=== PATIENT | female | born 1990 | race Caucasian/White ===

== ENCOUNTER → 2023-12-09 10:43 | Outpatient (REF) | payer OTHER, SELFPAY ==
[2023-12-10 14:36] LABS: Mumps Virus IgG Positive; Rubeola (Measles) IgG Positive; Varicella Zoster IgG (VZV) Positive
[2023-12-10 19:13] LABS: Rubella Positive
[2023-12-11 10:32] LABS: Quantiferon Mitogen minus NIL 9.98 IU/mL; Quantiferon NIL 0.02 IU/mL; Quantiferon Plus TB1 minus NIL 0.01 IU/mL (<=0.34); Quantiferon Plus TB2 minus NIL 0.02 IU/mL (<=0.34); Quantiferon TB Gold Plus Negative (Negative)
== END ==
LOC: OHS 10:43
PROVIDERS: ATTENDING PHYSICIAN Nurse Practitioner Family
DX: Z23 Encounter for immunization (principal)
CPT/HCPCS: 36415; 86480; 86735; 86762; 86765; 86787

== ENCOUNTER → 2024-03-29 16:33 | Outpatient (REF) | payer BC, SELFPAY ==
[2024-03-29 17:00] LABS: % Eosinophils 0.2 % (0-6); % Immature Granulocytes 0.2 % (0-0.5); % Lymphocytes 43.8 % (20.5-51.1); % Neutrophils 46.8 % (42.2-75.2); Absolute Lymphocytes 2.9 10^3/uL (1.2-3.4); Absolute Monocytes 0.6 10^3/uL (0.1-0.6); Absolute Neutrophils 3.1 10^3/uL (1.4-6.5); Hematocrit 37.2 % (37.0-47.0); Hemoglobin 12.7 g/dL (12.0-16.0); Mean Corp Hgb Conc. 34.1 g/dL (33.0-37.0); Mean Corpuscular Hgb 30.5 pg (27.0-31.0); Mean Corpuscular Volume 89.2 fL (81.0-99.0); Mean Platelet Volume 8.2 fL (7.4-10.4); Nucleated Red Blood Cells % 0 %; Platelet Count 381 10^3/uL (130-400); Red Blood Cell Count 4.17 10^6/uL (4.20-5.40); White Blood Cell Count 6.6 10^3/uL (4.8-10.8)
== END ==
LOC: RAD 16:33
PROVIDERS: ATTENDING PHYSICIAN Nurse Practitioner Adult Health; FAMILY PHYSICIAN Family Medicine
DX: N93.9 Abnormal uterine and vaginal bleeding, unspecified (principal)
CPT/HCPCS: 36415; 85025

== ENCOUNTER → 2024-04-05 15:52 | Outpatient (REF) | payer BC, SELFPAY | LOC: RAD 15:52 | PROVIDERS: ATTENDING PHYSICIAN Nurse Practitioner Adult Health; FAMILY PHYSICIAN Family Medicine | DX: N93.9 Abnormal uterine and vaginal bleeding, unspecified (principal) | CPT/HCPCS: 76830; 76856 ==

== ENCOUNTER → 2024-05-19 10:38 | Outpatient (REF) | payer BC, SELFPAY ==
[2024-05-19 11:56] LABS: % Eosinophils 0.2 % (0-6); % Immature Granulocytes 0.5 % (0-0.5); % Monocytes 6.8 % (1.7-9.3); % Neutrophils 49.5 % (42.2-75.2); Absolute Lymphocytes 2.5 10^3/uL (1.2-3.4); Absolute Monocytes 0.4 10^3/uL (0.1-0.6); Absolute Neutrophils 2.9 10^3/uL (1.4-6.5); Hematocrit 39.7 % (37.0-47.0); Hemoglobin 13.6 g/dL (12.0-16.0); Mean Corp Hgb Conc. 34.3 g/dL (33.0-37.0); Mean Corpuscular Hgb 30.4 pg (27.0-31.0); Mean Corpuscular Volume 88.6 fL (81.0-99.0); Mean Platelet Volume 8.3 fL (7.4-10.4); Nucleated Red Blood Cells % 0 %; Platelet Count 395 10^3/uL (130-400); Red Blood Cell Count 4.48 10^6/uL (4.20-5.40); Red Cell Dist. Width 11.9 % (11.5-14.5); White Blood Cell Count 5.9 10^3/uL (4.8-10.8)
[2024-05-19 12:27] LABS: ALT (SGPT) 69 U/L (0-35); AST (SGOT) 50 U/L (14-36); Albumin 5.2 g/dl (3.5-5.0); Alkaline Phosphatase 67 U/L (38-126); Blood Urea Nitrogen 12 mg/dl (7-17); Calcium 9.8 mg/dl (8.4-10.2); Carbon Dioxide 26 mmol/L (22-30); Chloride 98 mmol/L (98-107); Direct Bilirubin 0.1 mg/dl (0.0-0.4); Glucose 88 mg/dl (70-99); HDL Cholesterol 50 mg/dl; LDL Cholesterol, Calculated 107 mg/dl; Potassium 4.7 mmol/L (3.5-5.1); Sodium 139 mmol/L (135-145); Total Bilirubin 0.5 mg/dl (0.2-1.3); Total Cholesterol 211 mg/dl (50-199); Total Protein 8.4 g/dl (6.3-8.2); Triglyceride 272 mg/dl (10-149); Very Low Density Lipoprotein 54 mg/dl (0-30); eGFR > 60.00
[2024-05-19 12:41] LABS: Vitamin D, 25-OH*** 51.7 ng/mL (30-80)
[2024-05-19 14:23] LABS: Glycohemoglobin (HgbA1c) 6.1 % (4.0-5.6)
[2024-05-19 19:28] LABS: Hepatitis A Antibody, Total Positive (Negative); Hepatitis B Surface Antibody Positive
[2024-05-20 18:36] LABS: F-Actin Antibody IgG 14 Units (0-19); Mitochondrial M2 Ab, IgG 5.6 Units (0.0-24.9)
[2024-05-21 02:15] LABS: ANA, IgG Reflex to HEp-2 Detected (None Detected)
[2024-05-22 04:48] LABS: Free Testosterone 7.6 pg/mL (1.3-9.2); Sex Hormone Binding Globulin 12 nmol/L (25-122); Total Testosterone,Female/Chil 30 ng/dL (9-55)
== END ==
LOC: REG 10:38
PROVIDERS: Internal Medicine Hepatology; ATTENDING PHYSICIAN Internal Medicine Endocrinology, Diabetes & Metabolism; FAMILY PHYSICIAN Family Medicine; REFERRING PHYSICIAN Obstetrics & Gynecology
DX: E28.2 Polycystic ovarian syndrome (principal); R73.03 Prediabetes; E78.2 Mixed hyperlipidemia; E55.9 Vitamin D deficiency, unspecified; R79.89 Other specified abnormal findings of blood chemistry
CPT/HCPCS: 36415; 80053; 80061; 82103; 82104; 82248; 82306; 83036; 84270; 84402; 84403; 85025; 86015; 86038; 86381; 86706; 86708

== ENCOUNTER → 2024-05-28 08:21 | Outpatient (REF) | payer BC, SELFPAY ==
[2024-05-28 09:13] LABS: % Eosinophils 0.2 % (0-6); % Immature Granulocytes 0.4 % (0-0.5); % Lymphocytes 39.6 % (20.5-51.1); % Monocytes 7.3 % (1.7-9.3); % Neutrophils 52.5 % (42.2-75.2); Absolute Lymphocytes 2.2 10^3/uL (1.2-3.4); Absolute Monocytes 0.4 10^3/uL (0.1-0.6); Absolute Neutrophils 2.9 10^3/uL (1.4-6.5); Hematocrit 38.8 % (37.0-47.0); Mean Corp Hgb Conc. 33.5 g/dL (33.0-37.0); Mean Corpuscular Hgb 30.3 pg (27.0-31.0); Mean Corpuscular Volume 90.4 fL (81.0-99.0); Mean Platelet Volume 8.3 fL (7.4-10.4); Nucleated Red Blood Cells % 0 %; Platelet Count 360 10^3/uL (130-400); Red Blood Cell Count 4.29 10^6/uL (4.20-5.40); Red Cell Dist. Width 12.2 % (11.5-14.5); White Blood Cell Count 5.6 10^3/uL (4.8-10.8)
[2024-05-28 09:37] LABS: ALT (SGPT) 79 U/L (0-35); AST (SGOT) 48 U/L (14-36); Albumin 5.2 g/dl (3.5-5.0); Alkaline Phosphatase 68 U/L (38-126); Blood Urea Nitrogen 14 mg/dl (7-17); Calcium 9.9 mg/dl (8.4-10.2); Carbon Dioxide 29 mmol/L (22-30); Chloride 98 mmol/L (98-107); Glucose 107 mg/dl (70-99); Magnesium 1.9 mg/dl (1.6-2.3); Potassium 4.9 mmol/L (3.5-5.1); Sodium 138 mmol/L (135-145); Total Bilirubin 0.8 mg/dl (0.2-1.3); Total Protein 8.3 g/dl (6.3-8.2); eGFR > 60.00
[2024-05-28 09:55] LABS: Vitamin D, 25-OH*** 48.3 ng/mL (30-80)
[2024-05-28 10:07] LABS: Erythrocyte Sed Rate 23 mm/hour (0-20)
[2024-05-28 12:50] LABS: Glycohemoglobin (HgbA1c) 6.3 % (4.0-5.6)
== END ==
LOC: REG 08:21
PROVIDERS: ATTENDING PHYSICIAN Internal Medicine Endocrinology, Diabetes & Metabolism; FAMILY PHYSICIAN Family Medicine
DX: E28.2 Polycystic ovarian syndrome (principal); R73.03 Prediabetes; E78.2 Mixed hyperlipidemia; E55.9 Vitamin D deficiency, unspecified; M25.50 Pain in unspecified joint
CPT/HCPCS: 36415; 80053; 82306; 83036; 83735; 84270; 84402; 84403; 85025; 85652; 86140; 86618

== ENCOUNTER → 2024-06-17 19:25 | Outpatient (REF) | payer BC, SELFPAY | LOC: MRI 3T 19:25 | PROVIDERS: ATTENDING PHYSICIAN Internal Medicine Hepatology; FAMILY PHYSICIAN Family Medicine | DX: K76.9 Liver disease, unspecified (principal) | CPT/HCPCS: 74183; A9581 ==

== ENCOUNTER → 2024-06-29 11:48 | Outpatient (REF) | payer BC, SELFPAY | LOC: REG 11:48 | PROVIDERS: ATTENDING PHYSICIAN Family Medicine; FAMILY PHYSICIAN Family Medicine | DX: R79.9 Abnormal finding of blood chemistry, unspecified (principal); Z01.89 Encounter for other specified special examinations; Z79.899 Other long term (current) drug therapy | CPT/HCPCS: 36415; 82088; 82384; 83835; 84244; 86316 ==

== ENCOUNTER 2024-06-29 17:36 | Emergency (ER) | payer BC, SELFPAY ==
[2024-06-29 17:40] VITALS: BP 146/99
[2024-06-29 18:23] VITALS: BMI 34.4
[2024-06-29] MEDS: TYLENOL 1000 MG PO (18:46)
[2024-06-29 18:51] LABS: % Basophils 0.1 % (0-2); % Eosinophils 0.1 % (0-6); % Immature Granulocytes 0.3 % (0-0.5); % Lymphocytes 39.2 % (20.5-51.1); % Monocytes 9.2 % (1.7-9.3); % Neutrophils 51.1 % (42.2-75.2); Absolute Lymphocytes 2.8 10^3/uL (1.2-3.4); Absolute Monocytes 0.7 10^3/uL (0.1-0.6); Absolute Neutrophils 3.6 10^3/uL (1.4-6.5); Hematocrit 35.8 % (37.0-47.0); Hemoglobin 12.3 g/dL (12.0-16.0); Mean Corp Hgb Conc. 34.4 g/dL (33.0-37.0); Mean Corpuscular Hgb 30.4 pg (27.0-31.0); Mean Corpuscular Volume 88.6 fL (81.0-99.0); Mean Platelet Volume 8.1 fL (7.4-10.4); Nucleated Red Blood Cells % 0 %; Platelet Count 343 10^3/uL (130-400); Red Blood Cell Count 4.04 10^6/uL (4.20-5.40); Red Cell Dist. Width 12.2 % (11.5-14.5); White Blood Cell Count 7.1 10^3/uL (4.8-10.8)
[2024-06-29 18:58] LABS: HCG, Serum Qualitative Screen Negative
[2024-06-29 19:00] VITALS: BP 130/79
[2024-06-29 19:01] LABS: ALT (SGPT) 50 U/L (0-35); AST (SGOT) 33 U/L (14-36); Alkaline Phosphatase 72 U/L (38-126); Blood Urea Nitrogen 14 mg/dl (7-17); Calcium 10.4 mg/dl (8.4-10.2); Carbon Dioxide 25 mmol/L (22-30); Chloride 98 mmol/L (98-107); Estimated Creatinine Clearance > 125 ml/min; Glucose 85 mg/dl (70-99); Potassium 4.1 mmol/L (3.5-5.1); Sodium 137 mmol/L (135-145); Total Bilirubin 0.7 mg/dl (0.2-1.3); eGFR > 60.00
[2024-06-29 19:12] LABS: Troponin I < 0.012 ng/ml
[2024-06-29] MEDS: MORPHINE SULFATE 4 MG IV (19:54)
[2024-06-29] MEDS: ZOFRAN 4 MG IV (19:54)
[2024-06-29 20:34] LABS: TSH Reflex To Free T4 3.52 uIU/ml (0.47-4.68)
[2024-06-29 20:46] VITALS: BP 120/75
[2024-06-29 21:00] VITALS: BP 113/72
[2024-06-29 22:00] VITALS: BP 112/77
--- NOTE | 2024-06-29 22:08 | ED.GENMED ---
History of Present Illness
General
Chief Complaint: Blood Pressure Problem
Source: patient
Exam Limitations: none
Time Seen by Provider: 06/29/24 18:26
Nursing documentation reviewed up to this point in time: agreed with
History of Present Illness
History of Present Illness:
Patient to ED with complaint of chest tightness, headache, elevated BP. States she was seen by PCP earlier today. Given rx for triptan for headache and metoprolol for BP. States she took both meds and does not feel any better. Brought self to ED
for eval. Denies fever/chillls, recent illness.
Past History
Past History
ED Past Medical History: None and Other (Polycystic ovarian syndrome)
Social History
Tobacco: Non-smoker
Alcohol: Occasional
Living: with family
Family History
Family History: Diabetes
Review of Systems
Review of Systems
Allergies reviewed?: Yes
All Other Systems: ROS reviewed and negative except as documented in HPI and ROS
Constitutional: Reports no symptoms
EENT: Reports no symptoms
Respiratory: Reports no symptoms
Cardiac: Reports chest pain (chest tightness) and other (Elevated BP)
ABD/GI: Reports no symptoms
: Reports no symptoms
Musculoskeletal: Reports no symptoms
Skin: Reports no symptoms
Neurological: Reports headache
Psychiatric: Reports no symptoms
Phy Exam
General Physical Exam
General Presentation: well appearing and mild distress
General age: appears stated age
General Skin: warm and dry
General Habitus: normal
General Mental: alert
General Hydration: appears well hydrated
Cardiovascular Exam
Cardiovascular Exam: regular rate/rhythm and no edema
Pulmonary Exam
Pulmonary Exam: lungs clear, no respiratory distress and chest non tender
Gastrointestinal Exam
Gastrointestinal Exam: non tender and soft
Musculoskeletal Exam
Musculoskeletal Exam: full ROM
Skin Exam
Skin Exam: normal color, warm/dry and no rash
Psychiatric Exam
Psychiatric Exam: normal mood/affect
Course
Orders/Labs/Results
Orders:
Orders
06/29/24 17:37
Electrocardiogram (*1) Urgent
Reason for Study: Chest Pain
EKG- Treatment ONCE
06/29/24 18:38
Cardiac Monitoring- Treatment ONCE
IV Insert/Care/Rem.- Treatment PRN
06/29/24 18:39
Complete Blood Count/With Diff Urgent
Comprehensive Metabolic Panel Urgent
HCG, Serum Qualitative Screen Urgent
TSH Reflex To Free T4 Urgent
Comment: ADD ON
Troponin I Urgent
Test Result ONCE
06/29/24 18:40
Acetaminophen [Tylenol] 1,000 mg PO NOW STA
06/29/24 19:34
Add On- LAB Routine
Tests Added?: TSH reflex
06/29/24 19:46
Morphine Sulfate 4 mg IV NOW STA
Ondansetron Injectable [Zofran] 4 mg IV NOW STA
06/29/24 19:54
CT Head W/o Iv Contrast Urgent
Comment:
Reason For Exam: atypical headache
06/29/24 21:38
Troponin I Urgent
Abnormal Lab Results
06/29/24
18:39
RBC 4.04 L 10^6/uL
(4.20-5.40)
Hct 35.8 L %
(37.0-47.0)
Absolute Monos (auto) 0.7 H 10^3/uL
(0.1-0.6)
Calcium 10.4 H mg/dl
(8.4-10.2)
ALT 50 H U/L
(0-35)
06/29/24 18:39
06/29/24 18:39
Vital Signs
Initial and Last Documented VS:
Initial Vital Signs
Temp Pulse Resp BP Pulse Ox
98.7 F 99 16 146/99 99
06/29/24 17:40 06/29/24 17:40 06/29/24 17:40 06/29/24 17:40 06/29/24 17:40
Last Documented Vital Signs
Temp Pulse Resp BP Pulse Ox
98.2 F 72 11 113/72 96
06/29/24 19:30 06/29/24 21:30 06/29/24 21:30 06/29/24 21:00 06/29/24 21:30
*Critical Care Note
Total Time (30-74mins, 75-104mins- exclusive of procedures): Not Applicable
ED Attending Note
-
Portions of this chart may have been created with voice recognition software.� Occasional wrong word or��sound alike� substitutions may have occurred due to the inherent limitations of voice recognition software.
Discharge Plan
Departure
Patient Disposition: Home (Routine Discharge)
Date of Disposition: 06/29/24
Time of Disposition: 22:32
Patient with high blood pressure during this ER visit?: No
Condition: Good
Covid-19: Not Applicable
Discharge Problem:
Headache, Chest pain
Instructions: High Blood Pressure (DC), Chest pain, Headaches in adults
Prescriptions:
No Action
spironolactone 25 MG tablet
25 mg PO DAILY
metformin 500 MG tablet extended release 24 hr
1,500 mg PO DAILY
Referrals:
Armando Landis MD [Family Provider] - Tomorrow
Interventions
Interventions:
*General Assessment Last Done: 06/29/24 18:33
*Neglect/Abuse Screening Last Done: 06/29/24 18:33
*ED- Fall Risk Assessment Last Done: 06/29/24 19:32
*ED COVID-19 Vaccine History Last Done: 06/29/24 18:28
ED- Cardiac Assessment Last Done: 06/29/24 19:31
ED- Neurological Assessment Last Done: 06/29/24 19:32
ED- Pulmonary Assessment Last Done: 06/29/24 18:59
Discharge Date and Time
Print Language: WELSH
[2024-06-29 22:16] LABS: Troponin I < 0.012 ng/ml
== END 2024-06-29 23:05 | disposition home or self-care (01) ==
LOC: EMR 17:36
PROVIDERS: Nurse Practitioner; EMERGENCY PHYSICIAN Emergency Medicine; FAMILY PHYSICIAN Family Medicine
DX: R51.9 Headache, unspecified (principal); R07.89 Other chest pain; E28.2 Polycystic ovarian syndrome; Z83.3 Family history of diabetes mellitus
CPT/HCPCS: 99284; 96374; 96375; 70450; 80053; 84443; 84484; 84703; 85025; 93005

== ENCOUNTER 2024-08-14 14:59 | Emergency (ER) | payer BC, SELFPAY ==
[2024-08-14 15:08] VITALS: BP 170/93
[2024-08-14 15:11] LABS: Glucose - Point of Care 121 mg/dl (70-99)
[2024-08-14 16:10] VITALS: BMI 32.6
--- NOTE | 2024-08-14 16:16 | ED.GENMED ---
History of Present Illness
General
Chief Complaint: Blood Sugar Problem
Source: patient
Exam Limitations: none
Time Seen by Provider: 08/14/24 16:14
Nursing documentation reviewed up to this point in time: agreed with
History of Present Illness
History of Present Illness:
This is a 34-year-old female with past medical history of type 2 diabetes, PCOS, skin cancer presents emergency department today with concerns of spikes in her blood sugar. Patient reports that she has been on metformin since she was a teenager for
PCOS reports that she got diagnosed with type 2 diabetes a few weeks ago. Patient reports that she had a continuous glucose monitor placed and reports that she noted that she has had spikes in her blood sugar after meals, and she feels that her
blood sugar has remained elevated for too long of a time after eating. She also notes that she has times when her blood sugar will drop below and she will feel lightheaded. She denies chest pain or shortness of breath. Her most recent A1c was
6.3%, because of her elevated sugars, she was also started on Ozempic by her cable braider a few weeks ago. Patient reports that she has been started on the lowest dose and was supposed to increase the dose today but was concerned that this would
decrease her blood sugar to much so she not take the dose. Patient denies syncopal episodes, visual changes, visual loss, pain with urination, abdominal pain, fevers or chills. Patient has any recent illnesses or recent prednisone use. Patient
reports that she has been having urologic issues which has been causing her stress and she is in between doctors appointments for this that she is
Past History
Past History
ED Past Medical History: None and Other (Polycystic ovarian syndrome)
Social History
Tobacco: Non-smoker
Alcohol: Occasional
Living: with family
Family History
Family History: Diabetes
Review of Systems
Review of Systems
All Other Systems: ROS reviewed and negative except as documented in HPI and ROS
Phy Exam
Physical Exam
Physical Exam:
General: Patient is well appearing and in no acute distress; non-toxic
Skin: Warm and dry, no rashes or lesions
Head: Normocephalic, atraumatic
Eyes: Sclera non-icteric. EOMs intact.
Cardiac: Regular rate and rhythm, no murmur
Peripheral Vascular: No lower extremity swelling or edema
Pulm: Normal respiratory effort, no wheezes, rales, rhonchi
Abdomen: No abdominal tenderness to palpation
Neuro: CN II-XII intact, no focal neurologic deficits.
Psychiatric: Appropriate mood and affect.
Course
Orders/Labs/Results
Orders:
Orders
08/14/24 16:30
Electrocardiogram (*1) Urgent
Reason for Study: Other
Other Reason for Exam: lightheadedness
EKG- Treatment ONCE
08/14/24 17:03
Complete Blood Count/With Diff Urgent
Comprehensive Metabolic Panel Urgent
Abnormal Lab Results
08/14/24 08/14/24
15:09 17:03
RBC 4.18 L 10^6/uL
(4.20-5.40)
MCH 31.3 H pg
(27.0-31.0)
Creatinine 0.5 L mg/dL
(0.6-1.0)
ALT 46 H U/L
(0-35)
POC Glucose 121 H mg/dl
(70-99)
08/14/24 17:03
08/14/24 17:03
Vital Signs
Initial and Last Documented VS:
Initial Vital Signs
Temp Pulse Resp BP Pulse Ox
98.9 F 97 16 170/93 99
08/14/24 15:08 08/14/24 15:08 08/14/24 15:08 08/14/24 15:08 08/14/24 15:08
Last Documented Vital Signs
Temp Pulse Resp BP Pulse Ox
98.9 F 78 18 126/75 98
08/14/24 15:08 08/14/24 18:33 08/14/24 18:33 08/14/24 18:33 08/14/24 18:33
MDM/Problems Addressed
Differential Diagnosis Includes:
Progression of type 2 diabetes/metformin failure, viral syndrome, cardiac arrhythmia
MDM/Problems Addressed:
This is a 34-year-old female with past medical history of type 2 diabetes, PCOS, skin cancer presents emergency department today with concerns of spikes in her blood sugar. Patient reports that she has been on metformin since she was a teenager for
PCOS reports that she got diagnosed with type 2 diabetes a few weeks ago. Patient recently had a continuous glucose monitor placed and she is concerned that her blood sugar has been too elevated not coming down promptly enough after meals. Patient
states that she feels well at this time other than mild headache, denies any syncopal episodes or nausea or vomiting. Patient was post to upper dose of Ozempic today but did not for fear of hypoglycemia. Physical exam patient is well-appearing no
acute distress heart failure rate and rhythm with no murmurs. She has no abdominal tenderness on exam. Did personally review patient's continuous glucose monitoring and there is no blood sugar readings below 70 the past few weeks, and the highest
reading I did see was around 250. Which was reportedly right after a meal. CBC and CMP unremarkable. Patient does have a follow-up with her PCP next 2 days, did recommend making a follow-up appoint with her cable braider sooner, patient may
need to go back on her Ozempic medication. Patient stable for discharge.
Chronic conditions affecting care:
htn, PCOS
*Pulse Oximetry
Patient hypoxic: no
*Critical Care Note
Total Time (30-74mins, 75-104mins- exclusive of procedures): Not Applicable
Data Reviewed
Review of Other/Old Records Reveals: Records (Reviewed ER physician documentation from 06/29/2024 patient seen for chest pain discharged with unremarkable workup, no discharge summary in [facility] to review)
ED Attending Note
-
Portions of this chart may have been created with voice recognition software.� Occasional wrong word or��sound alike� substitutions may have occurred due to the inherent limitations of voice recognition software.
Discharge Plan
Departure
Patient Disposition: Home (Routine Discharge)
Date of Disposition: 08/14/24
Time of Disposition: 17:53
Patient with high blood pressure during this ER visit?: Yes
Condition: Good
Discharge Problem:
Abnormal blood sugar
Instructions: Type 2 Diabetes (DC), BLOOD PRESSURE
Prescriptions:
No Action
spironolactone 25 MG tablet
25 mg PO DAILY
metformin 500 MG tablet extended release 24 hr
1,500 mg PO DAILY
Referrals:
Armando Landis MD [Family Provider] -
Activity Restrictions/Additional Instructions:
Please call your cable braider tomorrow morning to schedule a sooner follow up appointment.
PLEASE RETURN EMERGENCY DEPARTMENT SHOULD YOU DEVELOP CHEST PAIN, SHORTNESS OF BREATH, DIZZINESS, LIGHTHEADEDNESS, FAINTING SPELLS, FEVERS OR CHILLS, ANY OTHER SIGNS OR SYMPTOMS WORRISOME TO YOU.
Interventions
Interventions:
*Risk Screen - Suicide Last Done: 08/14/24 15:08
*General Assessment Last Done: 08/14/24 15:08
*Neglect/Abuse Screening Last Done: 08/14/24 15:08
*ED COVID-19 Vaccine History Last Done: 08/14/24 15:08
*Nursing Disposition Last Done: 08/14/24 18:42
ED- Neurological Assessment Last Done: 08/14/24 16:10
Discharge Date and Time
Discharge Date/Time: 08/14/24 18:42
Print Language: PERUVIAN
[2024-08-14 17:13] LABS: % Basophils 0.1 % (0-2); % Eosinophils 0.1 % (0-6); % Immature Granulocytes 0.3 % (0-0.5); % Lymphocytes 35.9 % (20.5-51.1); % Monocytes 6.9 % (1.7-9.3); % Neutrophils 56.7 % (42.2-75.2); Absolute Lymphocytes 2.5 10^3/uL (1.2-3.4); Absolute Monocytes 0.5 10^3/uL (0.1-0.6); Absolute Neutrophils 3.9 10^3/uL (1.4-6.5); Hemoglobin 13.1 g/dL (12.0-16.0); Mean Corp Hgb Conc. 35.4 g/dL (33.0-37.0); Mean Corpuscular Hgb 31.3 pg (27.0-31.0); Mean Corpuscular Volume 88.5 fL (81.0-99.0); Mean Platelet Volume 8.2 fL (7.4-10.4); Nucleated Red Blood Cells % 0 %; Platelet Count 357 10^3/uL (130-400); Red Blood Cell Count 4.18 10^6/uL (4.20-5.40); Red Cell Dist. Width 11.9 % (11.5-14.5); White Blood Cell Count 6.9 10^3/uL (4.8-10.8)
[2024-08-14 17:30] LABS: ALT (SGPT) 46 U/L (0-35); AST (SGOT) 29 U/L (14-36); Alkaline Phosphatase 66 U/L (38-126); Blood Urea Nitrogen 12 mg/dl (7-17); Calcium 9.9 mg/dl (8.4-10.2); Carbon Dioxide 25 mmol/L (22-30); Chloride 104 mmol/L (98-107); Estimated Creatinine Clearance > 125 ml/min; Glucose 91 mg/dl (70-99); Potassium 4.6 mmol/L (3.5-5.1); Sodium 140 mmol/L (135-145); Total Bilirubin 0.4 mg/dl (0.2-1.3); Total Protein 7.9 g/dl (6.3-8.2); eGFR > 60.00
[2024-08-14 18:33] VITALS: BP 126/75
== END 2024-08-14 18:42 | disposition home or self-care (01) ==
LOC: EMR 14:59
PROVIDERS: Physician Assistant; EMERGENCY PHYSICIAN Emergency Medicine; FAMILY PHYSICIAN Family Medicine
DX: E11.65 Type 2 diabetes mellitus with hyperglycemia (principal); R42 Dizziness and giddiness; R51.9 Headache, unspecified; R03.0 Elevated blood-pressure reading, without diagnosis of hypertension; E28.2 Polycystic ovarian syndrome; Z85.828 Personal history of other malignant neoplasm of skin; Z79.899 Other long term (current) drug therapy
CPT/HCPCS: 99283; 80053; 82962; 85025; 93005

== ENCOUNTER → 2024-08-25 10:11 | Outpatient (REF) | payer BC, SELFPAY ==
[2024-08-25 11:13] LABS: % Basophils 0.2 % (0-2); % Immature Granulocytes 0.2 % (0-0.5); % Lymphocytes 41.9 % (20.5-51.1); % Neutrophils 50.7 % (42.2-75.2); Absolute Lymphocytes 2.4 10^3/uL (1.2-3.4); Absolute Monocytes 0.4 10^3/uL (0.1-0.6); Absolute Neutrophils 2.9 10^3/uL (1.4-6.5); Hematocrit 40.4 % (37.0-47.0); Hemoglobin 13.8 g/dL (12.0-16.0); Mean Corp Hgb Conc. 34.2 g/dL (33.0-37.0); Mean Corpuscular Hgb 30.3 pg (27.0-31.0); Mean Corpuscular Volume 88.6 fL (81.0-99.0); Mean Platelet Volume 8.4 fL (7.4-10.4); Nucleated Red Blood Cells % 0 %; Platelet Count 417 10^3/uL (130-400); Red Blood Cell Count 4.56 10^6/uL (4.20-5.40); White Blood Cell Count 5.7 10^3/uL (4.8-10.8)
[2024-08-25 11:40] LABS: ALT (SGPT) 51 U/L (0-35); AST (SGOT) 30 U/L (14-36); Albumin 5.3 g/dl (3.5-5.0); Alkaline Phosphatase 68 U/L (38-126); Blood Urea Nitrogen 10 mg/dl (7-17); Calcium 9.9 mg/dl (8.4-10.2); Carbon Dioxide 26 mmol/L (22-30); Chloride 102 mmol/L (98-107); Glucose 93 mg/dl (70-99); Potassium 4.8 mmol/L (3.5-5.1); Sodium 141 mmol/L (135-145); Total Bilirubin 0.5 mg/dl (0.2-1.3); Total Protein 8.4 g/dl (6.3-8.2); eGFR > 60.00
[2024-08-25 11:52] LABS: Microalbumin, Random Urine 28.7 mg/dl (0.6-1.7)
[2024-08-25 12:06] LABS: TSH 1.56 uIU/ml (0.47-4.68)
[2024-08-25 12:13] LABS: Glycohemoglobin (HgbA1c) 5.6 % (4.0-5.6)
[2024-08-28 00:24] LABS: C-Peptide 5.1 ng/mL (0.5-3.3); Insulin, Random 81 uIU/mL
== END ==
LOC: REG 10:11
PROVIDERS: ATTENDING PHYSICIAN Internal Medicine Endocrinology, Diabetes & Metabolism; FAMILY PHYSICIAN Family Medicine
DX: Z00.00 Encounter for general adult medical examination without abnormal findings (principal); E28.2 Polycystic ovarian syndrome; K76.0 Fatty (change of) liver, not elsewhere classified; E11.9 Type 2 diabetes mellitus without complications; R73.03 Prediabetes
CPT/HCPCS: 36415; 80053; 82043; 82570; 83036; 83525; 84443; 84681; 85025

== ENCOUNTER 2024-09-07 08:23 | Outpatient (RCR) | payer BC, SELFPAY | END 2024-09-07 23:59 | disposition home or self-care (01) | LOC: RPT 08:23 | PROVIDERS: ATTENDING PHYSICIAN Obstetrics & Gynecology; FAMILY PHYSICIAN Family Medicine | DX: N39.46 Mixed incontinence (principal); M62.89 Other specified disorders of muscle; N39.8 Other specified disorders of urinary system; Z73.6 Limitation of activities due to disability | CPT/HCPCS: 97110; 97162; 97530 ==

== ENCOUNTER 2024-10-19 15:41 | Outpatient (RCR) | payer BC, SELFPAY | END 2024-10-19 23:59 | disposition home or self-care (01) | LOC: RPT 15:41 | PROVIDERS: ATTENDING PHYSICIAN Obstetrics & Gynecology; FAMILY PHYSICIAN Family Medicine | DX: N39.46 Mixed incontinence (principal); M62.89 Other specified disorders of muscle; N39.8 Other specified disorders of urinary system; Z73.6 Limitation of activities due to disability | CPT/HCPCS: 97014; 97112; 97140; 97530 ==

== ENCOUNTER 2024-11-08 06:15 | Day surgery (SDC) | payer BC, SELFPAY ==
[2024-11-08 11:20] VITALS: BP 136/90
[2024-11-08 11:28] VITALS: BMI 33.7
[2024-11-08 11:43] LABS: Glucose - Point of Care 97 mg/dl (70-99)
[2024-11-08 14:42] VITALS: BP 131/85
[2024-11-08 14:45] VITALS: BP 140/94
[2024-11-08 15:00] VITALS: BP 135/75
== END 2024-11-08 15:35 | disposition home or self-care (01) ==
LOC: SDS 06:15
PROVIDERS: ATTENDING PHYSICIAN Internal Medicine Gastroenterology
DX: K82.4 Cholesterolosis of gallbladder (principal); K82.8 Other specified diseases of gallbladder; K76.9 Liver disease, unspecified; R59.0 Localized enlarged lymph nodes; Z85.828 Personal history of other malignant neoplasm of skin
CPT/HCPCS: 43242; 82962; 88172; 88173; 88177; 88305

== ENCOUNTER 2024-11-14 16:13 | Outpatient (RCR) | payer BC, SELFPAY | END 2024-11-14 23:59 | disposition home or self-care (01) | LOC: RPT 16:13 | PROVIDERS: ATTENDING PHYSICIAN Obstetrics & Gynecology; FAMILY PHYSICIAN Family Medicine | DX: N39.46 Mixed incontinence (principal); M62.89 Other specified disorders of muscle; N39.8 Other specified disorders of urinary system; Z73.6 Limitation of activities due to disability | CPT/HCPCS: 97014; 97110; 97112; 97140 ==

== ENCOUNTER 2024-12-15 09:49 | Outpatient (RCR) | payer BC, SELFPAY | END 2024-12-15 23:59 | disposition home or self-care (01) | LOC: RPT 09:49 | PROVIDERS: ATTENDING PHYSICIAN Obstetrics & Gynecology; FAMILY PHYSICIAN Family Medicine | DX: N39.46 Mixed incontinence (principal); M62.89 Other specified disorders of muscle; N39.8 Other specified disorders of urinary system; Z73.6 Limitation of activities due to disability | CPT/HCPCS: 97010; 97014; 97110; 97112; 97140; 97530 ==

== ENCOUNTER → 2024-12-31 09:11 | Outpatient (REF) | payer BC, SELFPAY ==
[2024-12-31 10:02] LABS: Hematocrit 39.4 % (37.0-47.0); Hemoglobin 13.3 g/dL (12.0-16.0); Mean Corp Hgb Conc. 33.8 g/dL (33.0-37.0); Mean Corpuscular Volume 87.6 fL (81.0-99.0); Nucleated Red Blood Cells % 0 %; Platelet Count 347 10^3/uL (130-400); Red Cell Dist. Width 11.9 % (11.5-14.5)
[2024-12-31 10:24] LABS: ALT (SGPT) 41 U/L (0-35); AST (SGOT) 28 U/L (14-36); Albumin 5.2 g/dl (3.5-5.0); Alkaline Phosphatase 63 U/L (38-126); Blood Urea Nitrogen 11 mg/dl (7-17); Calcium 10.4 mg/dl (8.4-10.2); Carbon Dioxide 25 mmol/L (22-30); Chloride 103 mmol/L (98-107); Glucose 92 mg/dl (70-99); HDL Cholesterol 51 mg/dl; LDL Cholesterol, Calculated 108 mg/dl; Magnesium 1.6 mg/dl (1.6-2.3); Potassium 4.9 mmol/L (3.5-5.1); Sodium 139 mmol/L (135-145); Total Protein 8.5 g/dl (6.3-8.2); Very Low Density Lipoprotein 47 mg/dl (0-30); eGFR > 60.00
[2024-12-31 10:40] LABS: Microalb - Urine Creatinine 122.200 mg/dl
[2024-12-31 10:42] LABS: Vitamin D, 25-OH*** 49.3 ng/mL (30-80)
[2024-12-31 11:03] LABS: Microalbumin, Random Urine 26.8 mg/dl (0.6-1.7)
[2024-12-31 12:12] LABS: Glycohemoglobin (HgbA1c) 5.9 % (4.0-5.6)
[2025-01-03 07:13] LABS: ANA, IgG Reflex to HEp-2 None Detected (None Detected)
== END ==
LOC: REG 09:11
PROVIDERS: ATTENDING PHYSICIAN Internal Medicine Endocrinology, Diabetes & Metabolism; FAMILY PHYSICIAN Family Medicine
DX: E11.9 Type 2 diabetes mellitus without complications (principal); M25.50 Pain in unspecified joint; E55.9 Vitamin D deficiency, unspecified
CPT/HCPCS: 36415; 80053; 80061; 82043; 82306; 82570; 83036; 83735; 85025; 86038

== ENCOUNTER 2025-01-12 10:31 | Outpatient (RCR) | payer BC, SELFPAY | END 2025-01-12 14:24 | disposition home or self-care (01) | LOC: RPT 10:31 | PROVIDERS: ATTENDING PHYSICIAN Obstetrics & Gynecology; FAMILY PHYSICIAN Family Medicine | DX: N39.46 Mixed incontinence (principal); M62.89 Other specified disorders of muscle; N39.8 Other specified disorders of urinary system; Z73.6 Limitation of activities due to disability | CPT/HCPCS: 97110; 97140; 97530 ==

== ENCOUNTER → 2025-01-21 08:27 | Outpatient (REF) | payer BC, SELFPAY ==
[2025-01-21 10:30] LABS: Urine Character Clear (Clear)
[2025-01-21 11:02] LABS: C-Reactive Protein 5.80 mg/L (0.0-10.00)
[2025-01-21 11:19] LABS: Urine Squamous Cell 16-20 /LPF (Few)
[2025-01-21 11:20] LABS: Urine Red Blood Cell 0-2 /HPF (0-2)
[2025-01-23 13:02] LABS: Rheumatoid Agglutinin Less Than 10 IU (<10 IU)
[2025-01-24 07:37] LABS: CCP Antibody IgG/IgA 3 Units (0-19)
== END ==
LOC: REG 08:27
PROVIDERS: ATTENDING PHYSICIAN Internal Medicine Rheumatology; FAMILY PHYSICIAN Family Medicine; REFERRING PHYSICIAN Internal Medicine Hepatology
DX: R19.7 Diarrhea, unspecified (principal); M25.50 Pain in unspecified joint; R53.83 Other fatigue; R76.8 Other specified abnormal immunological findings in serum
CPT/HCPCS: 36415; 73130; 73560; 73565; 81003; 81015; 82550; 82570; 82653; 82705; 84156; 85652; 86038; 86140; 86160; 86200; 86225; 86235; 86430

== ENCOUNTER → 2025-02-02 12:07 | Outpatient (REF) | payer BC, SELFPAY | LOC: HWRAD 12:07 | PROVIDERS: ATTENDING PHYSICIAN Obstetrics & Gynecology; FAMILY PHYSICIAN Family Medicine | DX: N20.0 Calculus of kidney (principal) | CPT/HCPCS: 76770 ==

== ENCOUNTER → 2025-03-04 09:01 | Outpatient (REF) | payer BC, SELFPAY ==
[2025-03-06 17:18] LABS: HLA-B27 Negative (Negative)
== END ==
LOC: REG 09:01
PROVIDERS: ATTENDING PHYSICIAN Student in an Organized Health Care Education/Training Program; FAMILY PHYSICIAN Family Medicine
DX: M25.50 Pain in unspecified joint (principal); M54.50 Low back pain, unspecified; R53.83 Other fatigue; R70.0 Elevated erythrocyte sedimentation rate
CPT/HCPCS: 36415; 72220; 86812

== ENCOUNTER 2025-03-07 06:35 | Day surgery (SDC) | payer BC, SELFPAY ==
[2025-03-07] VITALS (9 sets, daily range): BP systolic 106–137; BP diastolic 68–83; BMI 33.3
[2025-03-07] MEDS: TRANSDERM-SCOP 1 PATCH TRANSDERM (09:18)
[2025-03-07] MEDS: NORMOSOL-R/PLASMALYTE-A 1000 IV (09:20)
[2025-03-07 09:30] LABS: Glucose - Point of Care 96 mg/dl (70-99)
[2025-03-07 09:52] LABS: Urine Character Clear (Clear)
[2025-03-07 09:59] LABS: Urine Red Blood Cell 0-2 /HPF (0-2); Urine White Cell 0-2 /HPF (0-5)
[2025-03-07] MEDS: ZOFRAN 4 MG IV (10:46)
[2025-03-07 10:52] LABS: Glucose - Point of Care 102 mg/dl (70-99)
[2025-03-07] MEDS: DILAUDID 0.5 MG IV (10:59)
== END 2025-03-07 12:31 | disposition home or self-care (01) ==
LOC: SDS 06:35
PROVIDERS: ATTENDING PHYSICIAN Obstetrics & Gynecology
DX: N39.3 Stress incontinence (female) (male) (principal); N36.41 Hypermobility of urethra
CPT/HCPCS: 57288; 81003; 81015; 82962; C1771

== ENCOUNTER → 2025-03-30 10:33 | Outpatient (REF) | payer BC, SELFPAY ==
[2025-04-07 04:08] LABS: HPV, High Risk Not Detected; HPV, High Risk Source Cervical
== END ==
LOC: CPAP 10:33
PROVIDERS: ATTENDING PHYSICIAN Nurse Practitioner Adult Health
DX: Z01.419 Encounter for gynecological examination (general) (routine) without abnormal findings (principal)
CPT/HCPCS: 87624; G0123